=== PATIENT | male | born 1995 | race Caucasian/White ===

== ENCOUNTER 2019-12-27 14:19 | Emergency (ER) | payer SELFPAY ==
[~2019-12-27] VITALS: Ht 182.9 cm; Wt 90.7 kg
[2019-12-27 14:27] VITALS: BP_SYST 123
--- NOTE | 2019-12-27 14:40 | NUR ---
pt came to ER for confusion. Was tropped off by meedics for confusion while walking. He complains of HUI.
--- NOTE | 2019-12-27 14:41 | NUR ---
Patient to ER bed H1 to gown for evaluation. Side rails up.
--- NOTE | 2019-12-27 14:50 | NUR ---
ER at bedside examining patient.
[2019-12-27] MEDS ORDERED: KETOROLAC TROMETHAMINE 30 MG VIAL IVP ONE (15:00)
[2019-12-27 15:56] LABS: CALCIUM 9.3 mg/dL (8.4-11.0); CREATININE 0.81 mg/dL (0.55-1.30); POTASSIUM 3.4 mmol/L (3.5-5.1)
[2019-12-27 16:02] LABS: TOTAL BILIRUBIN 0.9 mg/dL (0.0-1.0)
--- NOTE | 2019-12-27 16:25 | NUR ---
Patient given written and verbal discharge instructions and verbalizes understanding. ER MD discussed with patient the results and treatment provided. Patient in stable condition. ID arm band removed. IV catheter removed intact and dressing applied, no active bleeding. Patient refused education on pain management and to follow up with PMD. Pain Scale 0/10. Opportunity for questions provided and answered. Medication side effect fact sheet provided.
== END 2019-12-27 16:25 | disposition home or self-care (01) ==
LOC: SED 14:19
DX: T67.5XXA Heat exhaustion, unspecified, initial encounter (principal); X30.XXXA Exposure to excessive natural heat, initial encounter; Y93.01 Activity, walking, marching and hiking; Y92.89 Other specified places as the place of occurrence of the external cause; Y99.8 Other external cause status
CPT/HCPCS: 36415; 80053; 96374; 99283; J1885